=== PATIENT | male | born 1950 | race Caucasian/White ===

== ENCOUNTER → 2020-08-31 | Outpatient (CLI) | payer OTHER, MEDICARE ==
[~2020-08-31] MED LIST: ACETAMINOPHEN325 M1 PO; ADULT LOW DOSE81 MG PO; BYSTOLIC2.5 MG PO; CELEBREX 200 M200 M1 PO; CO Q-10100 MG PO; IBUPROFEN200 M2 PO; LIPITOR10 MG PO; MEDROLDOSEPACK PO; MOBIC7.5 MG PO; PROTONIX 20 MG20 M1 PO; SIMVASTATIN10 MG PO; VITAMIN D1000 UNI1 PO; ZINC CHELATE50 MG
== END ==
LOC: LAB 07:33
PROVIDERS: ATTEND Nurse Practitioner
DX: J02.9 Acute pharyngitis, unspecified (principal); R05 Cough; Z20.822 Contact with and (suspected) exposure to COVID-19